=== PATIENT | female | born 1955 | race Caucasian/White ===

== ENCOUNTER 2021-06-17 11:55 | Emergency (ER) | payer MEDICARE, SELFPAY ==
[2021-06-17 12:05] VITALS: BP 206/151; PULSE 63; RESP 18; TEMP 35.8; O2SAT 99; BMI 38.0
--- NOTE | 2021-06-17 12:20 | XRR_ITS ---
PROCEDURE INFORMATION: Exam: XR Cervical Spine Exam date and time: 06/17/2021 12:39 PM Age: 66 years old Clinical indication: Trampled by horse today. Blunt trauma. Horse stepped on her. TECHNIQUE: Imaging protocol: XR of the cervical spine. Views: 2 or 3 views. COMPARISON: No relevant prior studies available. FINDINGS: Bones/joints: Grade 1 retrolisthesis of C2. The atlantoaxial interval and craniocervical junction are unremarkable. Moderate degenerative disc disease in the mid and lower cervical spine. No acute fracture is identified. Soft tissues: No prevertebral soft tissue swelling is seen. XR/XR cervical spine 3V* [id number] IMPRESSION: 1. No acute fracture is seen in the cervical spine. 2. Moderate degenerative disc disease in the mid and lower cervical spine.
--- NOTE | 2021-06-17 12:20 | XR_ITS ---
WS: [id number] Exam: XR thoracic spine 3V* [id number] Date/Time of Exam: 06/17/2021 12:20 PM Reason For Exam: injury, horse stepped on her No acute fracture or dislocation. Mild degenerative changes and osteopenia. Paraspinal soft tissue st ructures are unremarkable. An IVC filter is noted. XR/XR thoracic spine 3V* [id number] IMPRESSION: 1. No acute fracture or malalignment. 2. Mild DJD and osteopenia.
--- NOTE | 2021-06-17 12:25 | ED_ITS ---
Documented by User: ALICJA Dodd 06/17/21 16:46 HPI - Back Pain/Injury General: Chief Complaint: Back Pain/Injury Stated Complaint: trampled by horse Time Seen by Provider: 06/17/21 12:15 History of Present Illness: Patient presents here with complaint of upper back pain related to horse stomping on her. Patient states this morning that she had a horse tied up to the trailer and the horse reared up and knocked her to the ground stump on her left thigh and upper part of her back. Patient says her back is only part that hurts right now. Patient has a history of hypertension treated and also includes whitecoat hypertension. Patient currently on Eliquis due to pulmonary clots this past winter. Patient denies any pain anywhere else denies any loss of consciousness. Associated symptoms: Deny abdominal pain, chills, fever(s), nausea or vomiting Review of Systems Narrative: Patient stomped on by a horse earlier today. Patient states it hurts in her upper back. She said she did get stomped on the left thigh anterior aspect to but is not bothering her presently. She says she is able to ambulate. Const: Denies: fever(s), chills or body aches Eyes: Denies: eye discomfort ENMT: Denies: throat pain Card: Denies: chest pain Resp: Denies: dyspnea GI: Denies: abdominal pain, nausea or vomiting Musc: Reports: back pain; Denies: joint pain Skin/Breast: Denies: rash Neuro: Denies: headache(s) Psych: Denies: depression or suicidal ideation Physical Exam Narrative: EXAM NARRATIVE: Patient does not appear in acute distress, is complain about pain in her upper back. Denies pain in her left thigh area. Const: COMMON NORMALS: no acute distress, patient oriented x3 and alert HENMT: COMMON NORMALS: normocephalic and external ears normal HEAD & SCALP: normocephalic EXTERNAL EAR: Yes external ears normal Eye: COMMON NORMALS: EOMs intact bilaterally Neck/C-Spine: COMMON NORMALS: no JVD Resp: COMMON NORMALS: normal respiratory effort and No use of accessory mu scles Cardio: COMMON NORMALS: no JVD GI: INSPECTION: Yes normal to inspection Back/Pelvis: THORACIC SPINE/UPPER BACK: Yes thoracic spinal tenderness (Patient has a contusion to the upper thoracic area.), Yes paraspinal muscle tenderness and No paraspinal muscle spasm Extremity: COMMON NORMALS: normal to inspection and full ROM Neuro: COMMON NORMALS: patient oriented x3 SENSORIUM/ORIENTATION: Yes alert PUPIL EXAM: Normal pupillary reactivity/response: bilateral Psych: COMMON NORMALS: mental status grossly normal Skin: COMMON NORMALS: no rashes or lesions noted NARRATIVE SKIN EXAM: Thigh does not have any tenderness with deep palpation patient has full range of motion. GENERAL SKIN EXAM: no rashes or lesions noted Course Vital Signs: Vital signs: Vital Signs Temperature 96.5 F L 06/17/21 12:05 Pulse Rate 88 06/17/21 14:31 Respiratory Rate 16 06/17/21 14:31 Blood Pressure 188/92 06/17/21 14:31 Pulse Oximetry 95 06/17/21 14:31 MDM - Back Pain/Injury Medical Decision Making Patient was trampled on by a horse at trail ride today. Were struck on the left thigh and also struck her on her spine. Patient has complaints only to her upper spine area. Patient is on Eliquis. She has developed a large bruise on her left upper thigh and we went ahead and did a compression wrap on that. X- ray studies were negative for any concerning findings. Patient has no thoracic injuries and has had no shortness of breath or chest pain. Patient encouraged to follow-up here in the ER if she has any worsening of symptoms. Labs Radiology Impressions Cervical Spine X-Ray 06/17/21 12:20 IMPRESSION: 1. No acute fracture is seen in the cervical spine. 2. Moderate degenerative disc disease in the mid and lower cervical spine. Thoracic Spine X-Ray 06/17/21 12:20 IMPRESSION: 1. No acute fracture or malalignment. 2. Mild DJD and osteopenia. Discharge Plan Discharge Patient Disposition: Home Clinical Impression: Contusion Condition: Stable Prescriptions: New hydrocodone-acetaminophen 5-325 mg tablet 1 tab PO TID PRN (Reason: pain) Qty: 14 0RF Discharge Orders: Discharge ED (Routine); Ordered 06/17/21 Ordered By: Roge Vila Discharge Diet: Usual diet Discharge Activity: Increase activity as tolerated Activity Restrictions/Additional Instructions: Follow-up with medical provider as directed. Take medications as prescribed. Return to the ER or your medical provider if condition worsens. Please read and understand discharge instructions. If any questions ask please. Since you take Eliquis, you are at risk for bleeding due to trauma if you have worsening symptoms such as shortness of breath, chest pain ,nausea and vomiting or feeling weak or severe dizziness please return to the ER. Coding Level of Care Code ED Plug Machine Operator for Martíng Fwd Exam Comprehensive Documented by User: Brennan Tong MD 06/18/21 16:29 HPI - Back Pain/Injury General: Chief Complaint: Back Pain/Injury Stated Complaint: trampled by horse Time Seen by Provider: 06/17/21 12:15 Course Vital Signs: Vital signs: Vital Signs Temperature 96.5 F L 06/17/21 12:05 Pulse Rate 88 06/17/21 14:31 Respiratory Rate 16 06/17/21 14:31 Blood Pressure 188/92 06/17/21 14:31 Pulse Oximetry 95 06/17/21 14:31 MDM - Back Pain/Injury Medical Decision Making Patient was trampled on by a horse at trail ride today. Were struck on the left thigh and also struck her on her spine. Patient has complaints only to her upper spine area. Patient is on Eliquis. She has developed a large bruise on her left upper thigh and we went ahead and did a compression wrap on that. X- ray studies were negative for any concerning findings. Patient has no thoracic injuries and has had no shortness of breath or chest pain. Patient encouraged to follow-up here in the ER if she has any worsening of symptoms. Dr. Tong - Patient evaluation, diagnosis, and management was performed independently by Roge Vila. I did not personally see the patient nor staff the patient with patient's provider. I did review the patient's note today and I believe this note is consistent. Labs Radiology Impressions Cervical Spine X-Ray 06/17/21 12:20 IMPRESSION: 1. No acute fracture is seen in the cervical spine. 2. Moderate degenerative disc disease in the mid and lower cervical spine. Thoracic Spine X-Ray 06/17/21 12:20 IMPRESSION: 1. No acute fracture or malalignment. 2. Mild DJD and osteopenia. Discharge Plan Discharge Patient Disposition: Home Clinical Impression: Contusion Condition: Stable Prescriptions: New hydrocodone-acetaminophen 5-325 mg tablet 1 tab PO TID PRN (Reason: pain) Qty: 14 0RF Discharge Orders: Discharge ED (Routine); Ordered 06/17/21 Ordered By: Roge Vila Discharge Diet: Usual diet Discharge Activity: Increase activity as tolerated Activity Restrictions/Additional Instructions: Follow-up with medical provider as directed. Take medications as prescribed. Return to the ER or your medical provider if condition worsens. Please read and understand discharge instructions. If any questions ask please. Since you take Eliquis, you are at risk for bleeding due to trauma if you have worsening symptoms such as shortness of breath, chest pain ,nausea and vomiting or feeling weak or severe dizziness please return to the ER. Coding Level of Care Code ED Plug Machine Operator for Lexa De La Vega Exam Comprehensive
[2021-06-17 13:17] VITALS: PULSE 77; RESP 16; O2SAT 98
[2021-06-17] MEDS: HYDROcodone-acetaminophen 7.5-325 mg Tablet 1 TAB PO (13:32)
[2021-06-17 14:30] VITALS: BP 188/92; PULSE 88; RESP 16; O2SAT 95
[2021-06-17 14:31] VITALS: BP 188/92; PULSE 88; RESP 16; O2SAT 95
== END 2021-06-17 14:33 | disposition home or self-care (01) ==
PROVIDERS: Emergency Provider Nurse Practitioner Family
DX: S20.229A Contusion of unspecified back wall of thorax, initial encounter (principal); S70.12XA Contusion of left thigh, initial encounter; W55.19XA Other contact with horse, initial encounter
CPT/HCPCS: 72040; 72072; 99283

== ENCOUNTER 2021-07-06 12:43 | Emergency (ER) | payer MEDICARE, OTHER, SELFPAY ==
[2021-07-06 12:51] VITALS: BP 172/84; PULSE 109; RESP 22; O2SAT 96
--- NOTE | 2021-07-06 13:07 | CTR_ITS ---
PROCEDURE INFORMATION: Exam: CT Chest Without Contrast; Diagnostic Exam date and time: 07/06/2021 1:35 PM Age: 66 years old Clinical indication: Injury or trauma; Blunt trauma (contusions or hematomas); Patient HX: Fell off a horse C/O L shoulder/rib pain; Additional info: Fall / back pain and L sided posteriolateral rib pain TECHNIQUE: Imaging protocol: Diagnostic computed tomography of the chest without contrast. Radiation optimization: All CT scans at this facility use at least one of these dose optimization techniques: automated exposure control; mA and/or kV adjustment per patient size (includes targeted exams where dose is matched to clinical indication); or iterative reconstruction. COMPARISON: CT cervical spin wo con* [id number] 07/06/2021 1:31 PM RADIATION DOSE METRICS: Total DLP (mGy-cm): 921.7 FINDINGS: Lungs: Asymmetric left-sided airspace disease, disproportionately localized in the posterior segment of the left upper lobe and lingula. Interstitial prominence. 4 mm right lower lobe nodule (series 2: Image 41). For patients at low risk (minimal or absent history of smoking and of other known risk factors), no routine follow-up is indicated. For patients at high risk (history of smoking or of other known risk factors), consider optional CT Chest at 12 months. (Reference: [facility]). Pleural spaces: No pneumothorax. Trace left pleural effusion. Heart: No cardiomegaly. Lymph nodes: No pathologically enlarged lymph nodes. Vasculature: Ectasia of the thoracic aorta. Upper abdomen: Asymmetric elevation of the right hemidiaphragm. Status post cholecystectomy. Bones/joints: Osteopenia, degenerative change, chronic compression deformities in the spine, and old rib fractures. Acute fractures involving the left 2nd, 3rd, 4th, and 5th ribs. Acute left scapular fracture (series 2: Image 28). Soft tissues: 3 mm punctate posterior subcutaneous calcification at the T12 level. CT/CT chest wo con [id number] IMPRESSION: 1. Acute fractures involving the left 2nd, 3rd, 4th, and 5th ribs. 2. Acute left scapular fracture (series 2: Image 28). 3. Asymmetric left-sided airspace disease, disproportionately localized in the posterior segment of the left upper lobe and lingula. 4. Additional findings as described above.
--- NOTE | 2021-07-06 13:07 | CTR_ITS ---
PROCEDURE INFORMATION: Exam: CT Head Without Contrast Exam date and time: 07/06/2021 1:25 PM Age: 66 years old Clinical indication: Blunt trauma without loss of consciousness. Fell off a horse. TECHNIQUE: Imaging protocol: Computed tomography of the head without contrast. Radiation optimization: All CT scans at this facility use at least one of these dose optimization techniques: automated exposure control; mA and/or kV adjustment per patient size (includes targeted exams where dose is matched to clinical indication); or iterative reconstruction. COMPARISON: CR XR cervical spine 3V* [id number] 06/17/2021 12:39 PM RADIATION DOSE METRICS: Total DLP (mGy-cm): 964.03 FINDINGS: Brain: No acute intracranial hemorrhage. Lacunar infarcts in the basal ganglia, bilaterally, of indeterminate age. No mass, mass effect or midline shift. There is no evidence of acute large vessel infarct. There is mild patchy subcortical and periventricular hypodensity, most commonly associated with small vessel ischemic disease of indeterminate age. The posterior fossa is grossly unremarkable; however, it is partially obscurred by beam hardening artifact. Bones/joints: No acute calvarial fracture is seen. CT/CT head wo con* [id number] IMPRESSION: 1. Mild presumed small vessel ischemic disease of indeterminate age. 2. Lacunar infarcts in the basal ganglia, bilaterally, of indeterminate age. 3. No acute intracranial hemorrhage. 4. Please see dedicated CT of the face for associated findings.
--- NOTE | 2021-07-06 13:07 | CTR_ITS ---
PROCEDURE INFORMATION: Exam: CT Maxillofacial Without Contrast Exam date and time: 07/06/2021 1:28 PM Age: 66 years old Clinical indication: Blunt trauma without loss of consciousness. Fell off a horse. Blood near bridge of nose. Facial bruise. TECHNIQUE: Imaging protocol: Computed tomography images of the face without contrast. Radiation optimization: All CT scans at this facility use at least one of these dose optimization techniques: automated exposure control; mA and/or kV adjustment per patient size (includes targeted exams where dose is matched to clinical indication); or iterative reconstruction. COMPARISON: CT head wo con* [id number] 07/06/2021 1:25 PM RADIATION DOSE METRICS: Total DLP (mGy-cm): 744.34 FINDINGS: Orbital cavities: The orbits and globes are unremarkable. Bones/joints: The temporomandibular joints appear anatomically aligned. Moderate degenerative changes at the temporomandibular joints. Paranasal sinuses: Mild bubbly debris in the right sphenoid chamber. Retention cyst or polyp in a posterior right ethmoid air cell. Mastoid air cells: The mastoid air cells are normally pneumatized. Soft tissues: The visualized parapharyngeal soft tissues are symmetric. Submandibular/Parotid glands: The visualized submandibular glands are symmetric. Lymph nodes: Scattered cervical lymph nodes are noted. CT/CT facial bones wo con* [id number] IMPRESSION: No acute fracture is identified.
--- NOTE | 2021-07-06 13:07 | CTR_ITS ---
PROCEDURE INFORMATION: Exam: CT Cervical Spine Without Contrast Exam date and time: 07/06/2021 1:31 PM Age: 66 years old Clinical indication: Blunt trauma without loss of consciousness. Fell off a horse landing on left side. TECHNIQUE: Imaging protocol: Computed tomography images of the cervical spine without contrast. Radiation optimization: All CT scans at this facility use at least one of these dose optimization techniques: automated exposure control; mA and/or kV adjustment per patient size (includes targeted exams where dose is matched to clinical indication); or iterative reconstruction. COMPARISON: CR XR cervical spine 3V* [id number] 06/17/2021 12:39 PM RADIATION DOSE METRICS: Total DLP (mGy-cm): 639.37 FINDINGS: There is a nondisplaced fracture involving the left 2nd rib. There is straightening of the normal cervical lordosis which may relate to patient positioning or muscle spasm. No prevertebral soft tissue swelling is seen. [id number] degenerative disc disease is seen in the cervical spine Mild wedging of the C7 and T1 vertebral bodies of indeterminate age. These are suspected to be chronic. The atlantoaxial interval and craniocervical junction are maintained. Small, scattered cervical lymph nodes are noted. CT/CT cervical spin wo con* [id number] IMPRESSION: 1. Mild wedging of the C7 and T1 vertebral bodies of indeterminate age. These are suspected to be chronic. 2. Nondisplaced acute appearing fracture involving the left 2nd rib. 3. There is straightening of the normal cervical lordosis which may relate to patient positioning or muscle spasm. 4. [id number] degenerative disc disease. 5. Please see dedicated CT chest for associated findings.
--- NOTE | 2021-07-06 13:10 | W.ED.TRAUMA ---
HPI - Trauma General: Chief Complaint: Trauma Stated Complaint: fell off horse Time Seen by Provider: 07/06/21 12:56 Course Vital Signs: Vital signs: Vital Signs Pulse Rate 109 H 07/06/21 12:51 Respiratory Rate 22 H 07/06/21 12:51 Blood Pressure 172/84 07/06/21 12:51 Pulse Oximetry 96 07/06/21 12:51 Discharge Plan Discharge Condition: Stable Prescriptions: No Action hydrocodone-acetaminophen 5-325 mg tablet 1 tab PO TID PRN (Reason: pain) Qty: 14 0RF Coding Level of Care Code ED [employer] Manager for Lexa De La Vega
--- NOTE | 2021-07-06 13:10 | XRR_ITS ---
PROCEDURE INFORMATION: Exam: XR Left Shoulder Exam date and time: 07/06/2021 1:44 PM Age: 66 years old Clinical indication: Injury or trauma; Fall and other: Fall from horse; Blunt trauma (contusions or hematomas); Shoulder; Left; Additional info: Shoulder pain TECHNIQUE: Imaging protocol: XR Left shoulder. Views: 2 or more views. COMPARISON: CT chest con [id number] 07/06/2021 1:35 PM FINDINGS: Bones/joints: Acute left rib fractures. Osteopenia and degenerative change. CT detected left scapular fracture is poorly visualized. Soft tissues: Diffuse soft tissue prominence. XR/XR shoulder LT min 2V* [id number] IMPRESSION: 1. Acute left rib fractures. 2. CT detected left scapular fracture is poorly visualized.
--- NOTE | 2021-07-06 13:12 | ED_ITS ---
HPI - General Adult General: Chief complaint: Trauma Stated complaint: fell off horse Time Seen by Provider: 07/06/21 12:56 History of Present Illness: Patient is a 66-year-old female history of DVT/PE, atrial fibrillation on Eliquis presenting to the emergency room after she fell from a horse. Patient was wearing a helmet when the horse started circling and patient fell onto her left side. Patient complains of left shoulder/arm pain. Patient reporting hitting her head against the ground wearing helmet. Patient has bruises over her face. Patient denies any LOC, headache. Patient states that she has been unable to range the right shoulder due to significant pain. Patient reports left-sided upper back pain. No other focal signs of injury. No active bleeding. Patient denies any chest pain, abdominal pain, nausea/vomiting fevers or chills. Onset: 1 hr ago Duration:once Location:home Severity:moderate Associated symptoms: Deny chest pain, dyspnea, nausea, palpitations or vomiting Review of Systems Const: Denies: fever(s) or chills Eyes: Denies: change in vision ENMT: Denies: mouth pain Card: Denies: chest pain or palpitations Resp: Denies: dyspnea or non-productive cough GI: Denies: abdominal pain, nausea, vomiting or diarrhea : Denies: dysuria Musc: Reports: extremity pain (+L shoulder pain/arm pain) and other (+L upper back pain) Skin/Breast: Reports: new lesions (+facial abrasions) Neuro: Denies: weakness in extremities Psych: Reports: other (Normal mood) [place]ais/Lymph: Denies: easy bruising [facility] ED PFSH: Medical History (Updated 07/06/21 @ 16:49 by Brennan Tong MD) No pertinent past medical history Social History (Updated 07/06/21 @ 13:14 by Brennan Tong MD) Smoking and tobacco status: never smoked Alcohol intake: never Substance/Drug Use: never Physical Exam Const: COMMON NORMALS: alert HENMT: COMMON NORMALS: atraumatic HEAD & SCALP: atraumatic MOUTH: moist mucous membranes not abnormal Eye: COMMON NORMALS: EOMs intact bilaterally and conjunctivae normal CONJUNCTIVA: Yes conjunctivae normal Neck/C-Spine: COMMON NORMALS: full ROM and supple Resp: COMMON NORMALS: normal respiratory effort and clear to auscultation bilaterally AUSCULTATION: clear to auscultation bilaterally Cardio: COMMON NORMALS: regular rate RATE: regular rate GI: COMMON NORMALS: Soft to palpation and non-tender PALPATION: Yes Soft to palpation Extremity: NARRATIVE EXTREMITY EXAM: + Left shoulder significant pain with range of motion, left humerus midshaft tenderness palpation bruises, neurovascular exam intact in the affected extremity Neuro: SENSORIUM/ORIENTATION: Yes alert MOTOR EXAM: No Abnormal motor strength present and Other motor observations present (no focal motor deficits) Psych: COMMON NORMALS: speech normal SPEECH: Yes normal speech MOOD & AFFECT: Yes euthymic mood Skin: NARRATIVE SKIN EXAM: +facial bruises/abrasions over the nose Course Vital Signs: Vital signs: Vital Signs Pulse Rate 94 07/06/21 17:00 Respiratory Rate 18 07/06/21 17:00 Blood Pressure 143/83 07/06/21 17:00 Pulse Oximetry 94 07/06/21 17:00 MDM - General Adult Medical Decision Making 66-year-old female with a history of DVT/PE, atrial fibrillation on Eliquis pre senting to the emergency room after an episode of fall with complaints of left shoulder, left arm, left sided pain. Plus facial bruises. X-ray shoulder/humerus showed L sided rib fractures. CT head CT face, CT C-spine, CT chest showed left-sided scapular fracture and multiple rib fractures. Given the fact the patient has scapular fracture, decision was made to order CT angio chest/abd/pelvis for concern of high mechanism of injury. CTA chest/abd/pelvis showed possible left-sided subcutaneous bleeding of the pelvis. Patient received PCC for Xa reversal of Eliquis. H&H appears to be stable. No focal hematoma bruises or compartment tightness of the leg fluid on exam. However I discussed case with Dr. Irby who recommended transferring the patient to a trauma center in case the pelvic subcutaneous bleeding gets worse. Case was discussed with Dr. Laura who agreed with the transfer to [facility] trauma for further evaluation and management of polytrauma Disposition: Transfer to outside hospital Lab Data : 07/06/21 14:50 07/06/21 14:50 Radiology Impressions Cervical Spine CT 07/06/21 13:07 IMPRESSION: 1. Mild wedging of the C7 and T1 vertebral bodies of indeterminate age. These are suspected to be chronic. 2. Nondisplaced acute appearing fracture involving the left 2nd rib. 3. There is straightening of the normal cervical lordosis which may relate to patient positioning or muscle spasm. 4. Vtaf-qp-kujlzyfo degenerative disc disease. 5. Please see dedicated CT chest for associated findings. Chest CT 07/06/21 13:07 IMPRESSION: 1. Acute fractures involving the left 2nd, 3rd, 4th, and 5th ribs. 2. Acute left scapular fracture (series 2: Image 28). 3. Asymmetric left-sided airspace disease, disproportionately localized in the posterior segment of the left upper lobe and lingula. 4. Additional findings as described above. Face CT 07/06/21 13:07 IMPRESSION: No acute fracture is identified. Head CT 07/06/21 13:07 IMPRESSION: 1. Mild presumed small vessel ischemic disease of indeterminate age. 2. Lacunar infarcts in the basal ganglia, bilaterally, of indeterminate age. 3. No acute intracranial hemorrhage. 4. Please see dedicated CT of the face for associated findings. Humerus X-Ray 07/06/21 13:10 IMPRESSION: Acute left rib fractures. Shoulder X-Ray 07/06/21 13:10 IMPRESSION: 1. Acute left rib fractures. 2. CT detected left scapular fracture is poorly visualized. Chest/Abdomen/Pelvis CTA 07/06/21 14:31 IMPRESSION: 1. Acute fractures involving the left 2nd through 5th ribs and left scapula. 2. Asymmetric left-sided airspace disease, disproportionately localized in the posterior segment of the left upper lobe and lingula. 3. Additional findings as described above. IMPRESSION: 1. Poorly defined subcutaneous hemorrhage about the left lateral pelvis, with extension into the lateral aspect of the left gluteus muscle. 2. No acute visceral or bony injury in the abdomen or pelvis. 3. Additional findings as described above. COMMENTS: For patients with an IVC filter, recommend assessment for a management plan for the patient's IVC filter. If there is no established management plan, recommend referral to an interventional clinician on a nonemergent basis for evaluation. ADDENDUM: 07/06/21 3625 Addendum The exam was resubmitted for interpretation with clinical question of acute versus chronic hemorrhage in the left gluteal region. The left gluteal region deep subcutaneous tissue hemorrhage/hematoma appears mildly hyperdense and therefore is most likely acute. The deep subcutaneous high-density hematoma measures about 12 cm transverse, 1.8 cm in thickness and 3.6 cm craniocaudad in the more medial component. The more lateral deep subcutaneous component measures about 3.7 x 2.1 by 3.2 cm. The most lateral aspect of the soft tissue is partially excluded on this exam however. Mild subcutaneous soft tissue stranding is also seen around hematoma suggesting area of contusion. Minimal left gluteal muscle swelling is also present which may be related to mild strain injury/minimal partial tear or minimal amount of intramuscular hemorrhage. Follow-up imaging with IV contrast may also be considered if there is rapidly expanding hematoma to exclude an active focus of hemorrhage. Discussed with Dr. Tong by phone at about 6:09 p.m. Eastern time 07/06/2021. Laboratory Results WBC 9.3 10^3/uL (4.0-10.0) 07/06/21 14:50 RBC 4.09 10^6/uL (4.1-5.3) L 07/06/21 14:50 Hgb 12.3 g/dL (11.5-15.3) 07/06/21 14:50 Hct 38.4 % (37.0-47.0) 07/06/21 14:50 MCV 93.9 fl (81-99) 07/06/21 14:50 MCH 30.1 pg (28.0-34.0) 07/06/21 14:50 MCHC 32.0 g/dL (30.0-36.0) 07/06/21 14:50 RDW 13.9 % (12.1-15.1) 07/06/21 14:50 Plt Count 328 10^3/cmm (130-400) 07/06/21 14:50 MPV 9.9 fL (7.4-10.4) 07/06/21 14:50 Neut % (Auto) 82.7 % 07/06/21 14:50 Lymph % (Auto) 10.5 % 07/06/21 14:50 [place] % (Auto) 6.1 % 07/06/21 14:50 Eos % (Auto) 0.1 % 07/06/21 14:50 Baso % (Auto) 0.3 % 07/06/21 14:50 Neut # (Auto) 7.70 10^3/uL (1.8-7.7) 07/06/21 14:50 Lymph # (Auto) 1.0 10^3/uL (0.8-4.8) 07/06/21 14:50 [place] # (Auto) 0.6 10^3/uL (0.2-0.9) 07/06/21 14:50 Eos # (Auto) 0.0 10^3/uL (0.0-0.8) 07/06/21 14:50 Baso # (Auto) 0.0 10^3/uL (0.0-0.1) 07/06/21 14:50 Nucleated RBC % (auto) 0 % 07/06/21 14:50 Nucleated RBCs # 0.0 /100WBC 07/06/21 14:50 Sodium 136 mmol/L (136-145) 07/06/21 14:50 Potassium 3.5 mmol/L (3.5-5.1) 07/06/21 14:50 Chloride 100 mmol/L (98-107) 07/06/21 14:50 Carbon Dioxide 23 mmol/L (22-29) 07/06/21 14:50 Anion Gap 16.5 (5-19) 07/06/21 14:50 BUN 15 mg/dL (8-23) 07/06/21 14:50 Creatinine 1.0 mg/dL (0.5-0.9) H 07/06/21 14:50 GFR Calculation 55.1 mL/min (90-130) L 07/06/21 14:50 Glucose 117 mg/dL (65-115) H 07/06/21 14:50 Calculated Osmolality 284 mOsm/kg (285-295) L 07/06/21 14:50 Calcium 9.8 mg/dL (8.5-10.5) 07/06/21 14:50 Imaging Data Other Imaging: Radiologist's impression: [facility] [address] [place] [address] XRay Report Signed Patient: Tomasa Taveras Unit #: [id number] : 1955 Age/Sex: 66 / F ADM Date: 07/06/21 Loc: ER Room/Bed: Attending Dr: Ordering Provider/Ordering MD: Brennan Tong MD Date of Service: 07/06/21 Procedure(s): XR shoulder LT min 2V* [id number] Accession Number(s): [id number] Report Number: [id number] PROCEDURE INFORMATION: Exam: XR Left Shoulder Exam date and time: 07/06/2021 1:44 PM Age: 66 years old Clinical indication: Injury or trauma; Fall and other: Fall from horse; Blunt trauma (contusions or hematomas); Shoulder; Left; Additional info: Shoulder pain TECHNIQUE: Imaging protocol: XR Left shoulder. Views: 2 or more views. COMPARISON: CT chest wo con [id number] 07/06/2021 1:35 PM FINDINGS: Bones/joints: Acute left rib fractures. Osteopenia and degenerative change. CT detected left scapular fracture is poorly visualized. Soft tissues: Diffuse soft tissue prominence. XR/XR shoulder LT min 2V* [id number] IMPRESSION: 1. Acute left rib fractures. 2. CT detected left scapular fracture is poorly visualized. ? Dictated By: Jose Hancock MD Signed By: Jose Hancock MD Signed Date/Time: 07/06/21 1422 DD/ [address] [place] [address] XRay Report Signed Patient: Tomasa Taveras Unit #: [id number] : 1955 Age/Sex: 66 / F ADM Date: 07/06/21 Loc: ER Room/Bed: Attending Dr: Ordering Provider/Ordering MD: Brennan Tong MD Date of Service: 07/06/21 Procedure(s): [place] [address] Accession Number(s): [id number] Report Number: [id number] PROCEDURE INFORMATION: Exam: XR Left Humerus Exam date and time: 07/06/2021 1:44 PM Age: 66 years old Clinical indication: Injury or trauma; Fall and other: Fall from horse; Blunt trauma (contusions or hematomas); Arm, upper; Left; Additional info: Humeral pain TECHNIQUE: Imaging protocol: XR Left humerus. Views: 2 or more views. COMPARISON: CT chest wo con [id number] 07/06/2021 1:35 PM FINDINGS: Bones/joints: Osteopenia and degenerative change. No acute bony injury in the visualized left humerus. Acute left rib fractures. CT detected left scapular fracture is poorly visualized. Soft tissues:? Diffuse soft tissue prominence. XR/[place] [address] IMPRESSION: Acute left rib fractures. ? Dictated By: Jose Hancock MD Signed By: Jose Hancock MD Signed Date/Time: 07/06/21 1422 DD/ [address] [address] [address] Scan Report Signed Patient: Tomasa Taveras Unit #: [id number] : 1955 Age/Sex: 66 / F ADM Date: 07/06/21 Loc: ER Room/Bed: Attending Dr: Ordering Provider/Ordering MD: Brennan Tong MD Date of Service: 07/06/21 Procedure(s): CT head wo con* [id number] Accession Number(s): [id number] Report Number: [id number] PROCEDURE INFORMATION: Exam: CT Head Without Contrast Exam date and time: 07/06/2021 1:25 PM Age: 66 years old Clinical indication: Blunt trauma without loss of consciousness. Fell off a horse. TECHNIQUE: Imaging protocol: Computed tomography of the head without contrast. Radiation optimization: All CT scans at this facility use at least one of these dose optimization techniques: automated exposure control; mA and/or kV adjustment per patient size (includes targeted exams where dose is matched to clinical indication); or iterative reconstruction. COMPARISON: CR XR cervical spine 3V* [id number] 06/17/2021 12:39 PM RADIATION DOSE METRICS: Total DLP (mGy-cm): 964.03 FINDINGS: Brain: No acute intracranial hemorrhage. Lacunar infarcts in the basal ganglia, bilaterally, of indeterminate age. No mass, mass effect or midline shift. There is no evidence of acute large vessel infarct. There is mild patchy subcortical and periventricular hypodensity, most commonly associated with small vessel ischemic disease of indeterminate age. The posterior fossa is grossly unremarkable; however, it is partially obscurred by beam hardening artifact. Bones/joints: No acute calvarial fracture is seen. CT/CT head wo con* [id number] IMPRESSION: 1. Mild presumed small vessel ischemic disease of indeterminate age. 2. Lacunar infarcts in the basal ganglia, bilaterally, of indeterminate age. 3. No acute intracranial hemorrhage. 4. Please see dedicated CT of the face for associated findings. ? Dictated By: Manuel Garcia Signed By: Manuel Garcia Signed Date/Time: 07/06/21 1406 DD/ [address] [address] [address] Scan Report Signed Patient: Tomasa Taveras Unit #: [id number] : 1955 Age/Sex: 66 / F ADM Date: 07/06/21 Loc: ER Room/Bed: Attending Dr: Ordering Provider/Ordering MD: Brennan Tong MD Date of Service: 07/06/21 Procedure(s): CT facial bones wo con* 94846 Accession Number(s): [id number] Report Number: [id number] PROCEDURE INFORMATION: Exam: CT Maxillofacial Without Contrast Exam date and time: 07/06/2021 1:28 PM Age: 66 years old Clinical indication: Blunt trauma without loss of consciousness. Fell off a horse. Blood near bridge of nose. Facial bruise. TECHNIQUE: Imaging protocol: Computed tomography images of the face without contrast. Radiation optimization: All CT scans at this facility use at least one of these dose optimization techniques: automated exposure control; mA and/or kV adjustment per patient size (includes targeted exams where dose is matched to clinical indication); or iterative reconstruction. COMPARISON: CT head wo con* [id number] 07/06/2021 1:25 PM RADIATION DOSE METRICS: Total DLP (mGy-cm): 744.34 FINDINGS: Orbital cavities: The orbits and globes are unremarkable. Bones/joints: The temporomandibular joints appear anatomically aligned. Moderate degenerative changes at the temporomandibular joints. Paranasal sinuses: Mild bubbly debris in the right sphenoid chamber. Retention cyst or polyp in a posterior right ethmoid air cell. Mastoid air cells: The mastoid air cells are normally pneumatized. Soft tissues: The visualized parapharyngeal soft tissues are symmetric. Submandibular/Parotid glands: The visualized submandibular glands are symmetric. Lymph nodes: Scattered cervical lymph nodes are noted. CT/CT facial bones wo con* [id number] IMPRESSION: No acute fracture is identified. ? Dictated By: Manuel Garcia Signed By: Manuel Garcia Signed Date/Time: 07/06/21 1409 DD/ [address] [address] [address] Scan Report Signed Patient: Tomasa Taveras Unit #: [id number] : 1955 Age/Sex: 66 / F ADM Date: 07/06/21 Loc: ER Room/Bed: Attending Dr: Ordering Provider/Ordering MD: Brennan Tong MD Date of Service: 07/06/21 Procedure(s): CT chest wo con 86443 Accession Number(s): [id number] Report Number: [id number] PROCEDURE INFORMATION: Exam: CT Chest Without Contrast; Diagnostic Exam date and time: 07/06/2021 1:35 PM Age: 66 years old Clinical indication: Injury or trauma; Blunt trauma (contusions or hematomas); Patient HX: Fell off a horse C/O L shoulder/rib pain; Additional info: Fall / back pain and L sided posteriolateral rib pain TECHNIQUE: Imaging protocol: Diagnostic computed tomography of the chest without contrast. Radiation optimization: All CT scans at this facility use at least one of these dose optimization techniques: automated exposure control; mA and/or kV adjustment per patient size (includes targeted exams where dose is matched to clinical indication); or iterative reconstruction. COMPARISON: CT cervical spin wo con* [id number] 07/06/2021 1:31 PM RADIATION DOSE METRICS: Total DLP (mGy-cm): 921.7 FINDINGS: Lungs: Asymmetric left-sided airspace disease, disproportionately localized in the posterior segment of the left upper lobe and lingula. Interstitial prominence. 4 mm right lower lobe nodule (series 2: Image 41). For patients at low risk (minimal or absent history of smoking and of other known risk factors), no routine follow-up is indicated. For patients at high risk (history of smoking or of other known risk factors), consider optional CT Chest at 12 months. (Reference: [place]). Pleural spaces: No pneumothorax. Trace left pleural effusion. Heart: No cardiomegaly. Lymph nodes: No pathologically enlarged lymph nodes. Vasculature: Ectasia of the thoracic aorta. Upper abdomen:? Asymmetric elevation of the right hemidiaphragm. Status post cholecystectomy. Bones/joints: Osteopenia, degenerative change, chronic compression deformities in the spine, and old rib fractures. Acute fractures involving the left 2nd, 3rd, 4th, and 5th ribs. Acute left scapular fracture (series 2: Image 28). Soft tissues: 3 mm punctate posterior subcutaneous calcification at the T12 level. CT/CT chest wo con [id number] IMPRESSION: 1. Acute fractures involving the left 2nd, 3rd, 4th, and 5th ribs. 2. Acute left scapular fracture (series 2: Image 28). 3. Asymmetric left-sided airspace disease, disproportionately localized in the posterior segment of the left upper lobe and lingula. 4. Additional findings as described above. ? ? Dictated By: Jose Hancock MD Signed By: Jose Hancock MD Signed Date/Time: 07/06/21 1421 DD/ [address] [place] [address] CT Scan Report Signed Patient: Tomasa Taveras Unit #: [id number] : 1955 Age/Sex: 66 / F ADM Date: 07/06/21 Loc: ER Room/Bed: Attending Dr: Ordering Provider/Ordering MD: Brennan Tong MD Date of Service: 07/06/21 Procedure(s): CT cervical spin wo con* 81307 Accession Number(s): [id number] Report Number: [id number] PROCEDURE INFORMATION: Exam: CT Cervical Spine Without Contrast Exam date and time: 07/06/2021 1:31 PM Age: 66 years old Clinical indication: Blunt trauma without loss of consciousness. Fell off a horse landing on left side. TECHNIQUE: Imaging protocol: Computed tomography images of the cervical spine without contrast. Radiation optimization: All CT scans at this facility use at least one of these dose optimization techniques: automated exposure control; mA and/or kV adjustment per patient size (includes targeted exams where dose is matched to clinical indication); or iterative reconstruction. COMPARISON: CR XR cervical spine 3V* [id number] 06/17/2021 12:39 PM RADIATION DOSE METRICS: Total DLP (mGy-cm): 639.37 FINDINGS: ?There is a nondisplaced fracture involving the left 2nd rib. ?There is straightening of the normal cervical lordosis which may relate to patient positioning or muscle spasm. ?No prevertebral soft tissue swelling is seen. ?Mebq-nt-qcvtdiqs degenerative disc disease is seen in the cervical spine ?Mild wedging of the C7 and T1 vertebral bodies of indeterminate age. These are suspected to be chronic. ?The atlantoaxial interval and craniocervical junction are maintained. ?Small, scattered cervical lymph nodes are noted. CT/CT cervical spin wo con* [id number] IMPRESSION: 1. Mild wedging of the C7 and T1 vertebral bodies of indeterminate age. These are suspected to be chronic. 2. Nondisplaced acute appearing fracture involving the left 2nd rib. 3. There is straightening of the normal cervical lordosis which may relate to patient positioning or muscle spasm. 4. Iivp-ai-liiwyxuw degenerative disc disease. 5. Please see dedicated CT chest for associated findings. ? Dictated By: Manuel Garcia Signed By: Manuel Garcia Signed Date/Time: 07/06/21 1415 DD/ [address] [address] [address] Scan Report Signed Patient: Tomasa Taveras Unit #: [id number] : 1955 Age/Sex: 66 / F ADM Date: 07/06/21 Loc: ER Room/Bed: Attending Dr: Ordering Provider/Ordering MD: Brennan Tong MD Date of Service: 07/06/21 Procedure(s): CT angio chest abdomen pelvis Accession Number(s): [id number] Report Number: [id number] PROCEDURE INFORMATION: Exam: CTA Chest With Contrast Exam date and time: 07/06/2021 3:24 PM Age: 66 years old Clinical indication: Injury or trauma; Fall and other: Fall from horse; Blunt trauma; Lower abdominal or back area; Bilateral; Additional info: Trauma baker scan, scpaular fracture TECHNIQUE: Imaging protocol: Computed tomographic angiography of the chest with contrast. COMPARISON: CT chest wo con [id number] 07/06/2021 1:35 PM FINDINGS: Pulmonary arteries: Opacification of the pulmonary arteries is somewhat limited by bolus timing. Aorta: Ectasia and atherosclerotic plaque in the descending thoracic aorta. Lungs: Interstitial prominence and asymmetric left-sided airspace disease, disproportionately localized in the posterior segment of the left upper lobe and lingula. 4 mm right lower lobe nodule as described on earlier chest CT report. Pleural spaces: Small left hemothorax.? No pneumothorax. Heart:? No cardiomegaly.? Lymph nodes: Subcentimeter lymph nodes. Diaphragm: Asymmetric elevation of the right hemidiaphragm. Bones/joints: Acute fractures involving the left 2nd through 5th ribs and left scapula. Degenerative change. Soft tissues: Subcutaneous edema in the posterior chest wall and 2 mm subcutaneous calcification in the right posterior chest wall. PROCEDURE INFORMATION: Exam: CTA Abdomen and Pelvis With Contrast Exam date and time: 07/06/2021 3:24 PM Age: 66 years old Clinical indication: Injury or trauma; Fall and other: Fall from horse; Blunt trauma; Lower abdominal or back area; Bilateral; Additional info: Trauma baker scan, scpaular fracture TECHNIQUE: Imaging protocol: Computed tomographic angiography of the abdomen and pelvis with contrast material. 3D rendering (Not supervised by radiologist): MIP and/or 3D reconstructed images were created by the technologist. Radiation optimization: All CT scans at this facility use at least one of these dose optimization techniques: automated exposure control; mA and/or kV adjustment per patient size (includes targeted exams where dose is matched to clinical indication); or iterative reconstruction. Contrast material: VISIPAQUE 320; Contrast volume: 95 ml; Contrast route: INTRAVENOUS (IV);? COMPARISON: None RADIATION DOSE METRICS: Total DLP (mGy-cm): 3033.1 FINDINGS: Arterial:? Vascular calcification. No abdominal aortic aneurysm or dissection. Patency of the celiac, mesenteric, renal, and iliac arteries. Veins: IVC filter. Liver: Fatty infiltration of the liver. Gallbladder and bile ducts: Status post cholecystectomy with mild biliary ductal dilatation. Pancreas: Mild pancreatic ductal dilatation, without focal mass. Spleen: No splenomegaly. Adrenal glands: Unremarkable adrenals. Kidneys and ureters: Normal renal morphology. No hydronephrosis. Stomach and bowel: Wall thickening in the nondistended stomach. Mild small bowel dilatation without a focal transition zone. Diverticula, without pericolonic inflammation. Appendix: No acute appendicitis. Intraperitoneal space: No free fluid. Lymph nodes: Subcentimeter lymph nodes. Urinary bladder: Bladder dilatation. Reproductive: Punctate uterine calcification. Bones/joints: 2.0 cm intraosseous hemangioma in the L3 vertebral body.? Grade 1 anterolisthesis of L4 on L5. Degenerative change with prominent facet arthropathy. vertebral body. Chronic L1 compression fracture. Soft tissues: Small fat containing umbilical hernia. Poorly defined subcutaneous hemorrhage about the left lateral pelvis, with extension into the lateral aspect of the left gluteus muscle. CT/CT angio chest abdomen pelvis IMPRESSION: 1. Acute fractures involving the left 2nd through 5th ribs and left scapula. 2. Asymmetric left-sided airspace disease, disproportionately localized in the posterior segment of the left upper lobe and lingula.? 3. Additional findings as described above. ? ? IMPRESSION: 1. Poorly defined subcutaneous hemorrhage about the left lateral pelvis, with extension into the lateral aspect of the left gluteus muscle. 2. No acute visceral or bony injury in the abdomen or pelvis. 3. Additional findings as described above.? ? COMMENTS: For patients with an IVC filter, recommend assessment for a management plan for the patient's IVC filter. If there is no established management plan, recommend referral to an interventional clinician on a nonemergent basis for evaluation. ? Dictated By: Jose Hancock MD Signed By: Jose Hancock MD Signed Date/Time: 07/06/21 1557 DD/ 1524 Discharge Plan Discharge Patient Disposition: Transfer to ED Clinical Impression: Left shoulder pain, Pain in humerus, Closed rib fracture, Closed left scapular fracture Condition: Stable Prescriptions: New Percocet 5-325 mg tablet 1 tab PO Q8H PRN (Reason: pain) Qty: 9 0RF lidocaine 5 % adhesive patch,medicated 1 patch topical DAILY PRN (Reason: pain) 30 Days Qty: 30 0RF Rx Instructions: leave on most painful area for up to 12 hrs Biofreeze (menthol) 5 % gel 1 ea topical BID PRN (Reason: pain) 10 Days Qty: 1 0RF No Action hydrocodone-acetaminophen 5-325 mg tablet 1 tab PO TID PRN (Reason: pain) Qty: 14 0RF Coding Level of Care Code ED [employer] Main[employer] Developer for Chg Fwd Exam Comprehensive
[2021-07-06] MEDS: lidocaine 5% Patch 1 PATCH TOPICAL (14:07)
[2021-07-06 14:08] VITALS: RESP 20
[2021-07-06] MEDS: acetaminophen 500 mg Tablet PO (14:08)
[2021-07-06] MEDS: morphine 4 mg/mL SDV 1 mL IVP (14:08)
[2021-07-06 14:10] VITALS: BP 155/88; PULSE 104; RESP 20; O2SAT 97
--- NOTE | 2021-07-06 14:31 | CTR_ITS ---
PROCEDURE INFORMATION: Exam: CTA Chest With Contrast Exam date and time: 07/06/2021 3:24 PM Age: 66 years old Clinical indication: Injury or trauma; Fall and other: Fall from horse; Blunt trauma; Lower abdominal or back area; Bilateral; Additional info: Trauma baker scan, scpaular fracture TECHNIQUE: Imaging protocol: Computed tomographic angiography of the chest with contrast. COMPARISON: CT chest con [id number] 07/06/2021 1:35 PM FINDINGS: Pulmonary arteries: Opacification of the pulmonary arteries is somewhat limited by bolus timing. Aorta: Ectasia and atherosclerotic plaque in the descending thoracic aorta. Lungs: Interstitial prominence and asymmetric left-sided airspace disease, disproportionately localized in the posterior segment of the left upper lobe and lingula. 4 mm right lower lobe nodule as described on earlier chest CT report. Pleural spaces: Small left hemothorax. No pneumothorax. Heart: No cardiomegaly. Lymph nodes: Subcentimeter lymph nodes. Diaphragm: Asymmetric elevation of the right hemidiaphragm. Bones/joints: Acute fractures involving the left 2nd through 5th ribs and left scapula. Degenerative change. Soft tissues: Subcutaneous edema in the posterior chest wall and 2 mm subcutaneous calcification in the right posterior chest wall. PROCEDURE INFORMATION: Exam: CTA Abdomen and Pelvis With Contrast Exam date and time: 07/06/2021 3:24 PM Age: 66 years old Clinical indication: Injury or trauma; Fall and other: Fall from horse; Blunt trauma; Lower abdominal or back area; Bilateral; Additional info: Trauma baker scan, scpaular fracture TECHNIQUE: Imaging protocol: Computed tomographic angiography of the abdomen and pelvis with contrast material. 3D rendering (Not supervised by radiologist): MIP and/or 3D reconstructed images were created by the technologist. Radiation optimization: All CT scans at this facility use at least one of these dose optimization techniques: automated exposure control; mA and/or kV adjustment per patient size (includes targeted exams where dose is matched to clinical indication); or iterative reconstruction. Contrast material: VISIPAQUE 320; Contrast volume: 95 ml; Contrast route: INTRAVENOUS (IV); COMPARISON: None RADIATION DOSE METRICS: Total DLP (mGy-cm): 3033.1 FINDINGS: Arterial: Vascular calcification. No abdominal aortic aneurysm or dissection. Patency of the celiac, mesenteric, renal, and iliac arteries. Veins: IVC filter. Liver: Fatty infiltration of the liver. Gallbladder and bile ducts: Status post cholecystectomy with mild biliary ductal dilatation. Pancreas: Mild pancreatic ductal dilatation, without focal mass. Spleen: No splenomegaly. Adrenal glands: Unremarkable adrenals. Kidneys and ureters: Normal renal morphology. No hydronephrosis. Stomach and bowel: Wall thickening in the nondistended stomach. Mild small bowel dilatation without a focal transition zone. Diverticula, without pericolonic inflammation. Appendix: No acute appendicitis. Intraperitoneal space: No free fluid. Lymph nodes: Subcentimeter lymph nodes. Urinary bladder: Bladder dilatation. Reproductive: Punctate uterine calcification. Bones/joints: 2.0 cm intraosseous hemangioma in the L3 vertebral body. Grade 1 anterolisthesis of L4 on L5. Degenerative change with prominent facet arthropathy. vertebral body. Chronic L1 compression fracture. Soft tissues: Small fat containing umbilical hernia. Poorly defined subcutaneous hemorrhage about the left lateral pelvis, with extension into the lateral aspect of the left gluteus muscle. CT/CT angio chest abdomen pelvis IMPRESSION: 1. Acute fractures involving the left 2nd through 5th ribs and left scapula. 2. Asymmetric left-sided airspace disease, disproportionately localized in the posterior segment of the left upper lobe and lingula. 3. Additional findings as described above. IMPRESSION: 1. Poorly defined subcutaneous hemorrhage about the left lateral pelvis, with extension into the lateral aspect of the left gluteus muscle. 2. No acute visceral or bony injury in the abdomen or pelvis. 3. Additional findings as described above. COMMENTS: For patients with an IVC filter, recommend assessment for a management plan for the patient's IVC filter. If there is no established management plan, recommend referral to an interventional clinician on a nonemergent basis for evaluation.
[2021-07-06 15:06] LABS: Basophils % 0.3 %; Eosinophils % 0.1 %; Hematocrit 38.4 % (37.0-47.0); Hemoglobin 12.3 g/dL (11.5-15.3); Lymphocytes % 10.5 %; Mean Corpuscular Hemoglobin 30.1 pg (28.0-34.0); Mean Corpuscular Volume 93.9 fl (81-99); Mean Platelet Volume 9.9 fL (7.4-10.4); Monocytes # 0.6 10^3/uL (0.2-0.9); Monocytes % 6.1 %; Neutrophils % 82.7 %; Nucleated Red Blood Cells % 0 %; Platelet Count 328 10^3/cmm (130-400); Red Blood Count 4.09 10^6/uL (4.1-5.3); Red Cell Distribution Width 13.9 % (12.1-15.1); White Blood Count 9.3 10^3/uL (4.0-10.0)
[2021-07-06 15:36] LABS: Anion Gap 16.5 (5-19); Blood Urea Nitrogen 15 mg/dL (8-23); Calcium 9.8 mg/dL (8.5-10.5); Carbon Dioxide 23 mmol/L (22-29); Chloride 100 mmol/L (98-107); Glomerular Filtration Rate 55.1 mL/min (90-130); Glucose 117 mg/dL (65-115); Osmolality Calculated 284 mOsm/kg (285-295); Potassium 3.5 mmol/L (3.5-5.1); Sodium 136 mmol/L (136-145)
[2021-07-06 16:34] VITALS: RESP 20
[2021-07-06] MEDS: morphine 4 mg/mL SDV 1 mL 2 MG IVP (16:34)
[2021-07-06 17:00] VITALS: BP 143/83; PULSE 94; RESP 18; O2SAT 94
[2021-07-06] MEDS: hum prothrombin cplx(pcc)4fact 2,000 UNIT in empty flexible container 1 EACH 300 UNIT IV (17:41)
== END 2021-07-06 18:00 ==
PROVIDERS: Emergency Provider Emergency Medicine
DX: S42.102A Fracture of unspecified part of scapula, left shoulder, initial encounter for closed fracture (principal); S22.42XA Multiple fractures of ribs, left side, initial encounter for closed fracture; R23.3 Spontaneous ecchymoses; V80.010A Animal-rider injured by fall from or being thrown from horse in noncollision accident, initial encounter; M79.602 Pain in left arm; M25.512 Pain in left shoulder; I48.91 Unspecified atrial fibrillation; Z79.01 Long term (current) use of anticoagulants
CPT/HCPCS: 70450; 70486; 71250; 71275; 72125; 73030; 73060; 74174; 80048; 85025; 96365; 96375; 96376; 99285; J2270; J7168; Q9967